=== PATIENT | female | born 1950 | race Caucasian/White ===

== ENCOUNTER 2021-01-20 16:13 | Emergency (ER) | payer MEDICARE ==
[2021-01-20 16:22] VITALS: PULSE 73; RESP 20; TEMP 97.5
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
[2021-01-20] MEDS ORDERED: DIPH,PERTUS(ACELL)TETVAC-LF 0.5 ML VIAL IM ONE (16:29)
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
[2021-01-20 19:20] VITALS: BP 174/91
== END 2021-01-20 19:19 | disposition home or self-care (01) ==
LOC: EC 16:13
DX: S01.81XA Laceration without foreign body of other part of head, initial encounter (principal); V18.0XXA Pedal cycle driver injured in noncollision transport accident in nontraffic accident, initial encounter; Y93.I9 Activity, other involving external motion
CPT/HCPCS: 12011; 70450; 70486; 72125; 90471; 90715; 99284